=== PATIENT | female | born 1965 | race Caucasian/White ===

== ENCOUNTER 2024-10-30 15:56 | Outpatient (CLI) | payer OTHER, SELFPAY ==
--- NOTE | ~2024-10-30 | MM_ITS ---
EXAMINATION: MM screening barak BI w belinda HISTORY: Screening TECHNIQUE: Craniocaudal and mediolateral oblique 3-D tomosynthesis images were obtained and synthetic 2-D images were generated. CAD analysis was submitted and interpreted. COMPARISON: No prior mammogram is available for comparison at this institution. BREAST PARENCHYMAL COMPOSITION: Dense: The breasts are heterogeneously dense, which may obscure small masses FINDINGS: There is focal asymmetry laterally in the right breast on CC view, posterior third. There i s asymmetry medially in the left breast on CC view. There are no suspicious calcifications or archite ctural distortion. IMPRESSION: 1. Bilateral breast asymmetries. 2. Additional mammographic views and possible breast ultrasound are recommended. BI-RADS Category 0: Incomplete: Needs additional imaging evaluation. Reviewed, dictated and finalized at location A. RONMENTAL MARKETING REPRESENTATIVE IMPRESSION: 1. Bilateral breast asymmetries. 2. Additional mammographic views and possible breast ultrasound are recommended . BI-RADS Category 0: Incomplete: Needs additional imaging evaluation.
== END 2024-10-30 15:57 | disposition home or self-care (01) ==
DX: Z12.31 Encounter for screening mammogram for malignant neoplasm of breast (principal); R92.8 Other abnormal and inconclusive findings on diagnostic imaging of breast
CPT/HCPCS: 77063; 77067

== ENCOUNTER 2024-11-26 07:54 | Outpatient (CLI) | payer OTHER, SELFPAY ==
--- NOTE | ~2024-11-26 | MMUS_ITS ---
EXAMINATION: US breast BI complete, MM diagnostic barak BI w belinda HISTORY: Follow-up breast asymmetries TECHNIQUE: Additional 3-D tomosynthesis images of the breasts were performed and synthetic 2-D images were generated. CAD analysis was submitted and interpreted. High resolution bilateral complete breas t ultrasound was performed. COMPARISON: Comparison to multiple prior studies sequentially, with oldest reviewed study dated 03/23. BREAST PARENCHYMAL COMPOSITION: Dense: The breasts are heterogeneously dense, which may obscure small masses FINDINGS: MAMMOGRAPHIC FINDINGS: There are no discrete masses, calcifications or architectural distortion in either breast to suggest malignancy. Breast asymmetries are stable ULTRASOUND: Complete US of all 4 quadrants of the breast/s and retroareolar region was reviewed. Normal heterogen eous echotexture without focal solid or cystic mass. IMPRESSION: 1. No evidence for malignancy in either breast. 2. Routine yearly screening mammogram and regular clinical breast examination are recommended. BI-RADS Category 1: Negative Reviewed, dictated and finalized at location [] KILN WORKER IMPRESSION: 1. No evidence for malignancy in either breast. 2. Routine yearly screening mammogram and regular clinical breast examination a re recommended. BI-RADS Category 1: Negative
== END 2024-11-26 07:55 | disposition home or self-care (01) ==
LOC: MICIMG 07:54
PROVIDERS: Visit Provider Nurse Practitioner
DX: R92.8 Other abnormal and inconclusive findings on diagnostic imaging of breast (principal)
CPT/HCPCS: 76641; 77062; 77066; G0279

== ENCOUNTER 2025-02-04 15:45 | Outpatient (CLI) | payer OTHER, SELFPAY ==
--- NOTE | ~2025-02-04 | MR_ITS ---
EXAMINATION: MR brain IAC wo/w con DATE: 02/04/2025 16:41 INDICATION: Bilateral sensorineural hearing loss TECHNIQUE: Magnetic resonance imaging (MRI) of the brain and brainstem was performed without and with 13 mL Multihance intravenous contrast. Sequences included sagittal and axial T1-weighted FSE, axial diffusion-weighted FS EPI, axial T2*-weighted GRE, axial T2-weighted FLAIR Propeller, axial T2-weight ed Propeller, small lnefv-ek-tsvx coronal FIESTA, small eempp-yq-yhbc coronal T1-weighted FSE, and sm all mrflu-lu-ukpy axial T1-weighted SPGR. Postcontrast sequences included axial T1-weighted FSE, smal l ndghw-kk-cuwp coronal T1-weighted FSE, and small lrsmq-xf-atlj axial T1-weighted SPGR. Apparent dif fusion coefficient (ADC) maps were created. COMPARISON: None. FINDINGS: There are no areas of restricted diffusion to suggest acute infarction. No intracranial hemorrhage or abnormal intracranial mass lesion. There are no intraparenchymal signal abnormalities seen on the ot her pulse sequences. The ventricles are symmetric and normal in size. Normal seventh/eighth cranial n erve complexes. No cerebellopontine angles masses. No evidence of mastoid or middle ear fluid. There are no abnormal extra-axial fluid collections. Flow voids are seen in the cerebral arteries on the T2 -weighted sequences consistent with their expected patency. Mild mucoperiosteal thickening the bilate ral ethmoid sinuses. There is mucus in the dependent aspect of the left sphenoid sinus. Changes of bi lateral intraocular lens replacement. Visualized orbits and soft tissues are unremarkable. There are no areas of abnormal enhancement on the post contrast images. IMPRESSION: 1. Normal brain and normal MR of the internal auditory canals with no etiology identified for reporte d bilateral sensorineural hearing loss. Reviewed, dictated and finalized at location B. IMPRESSION: 1. Normal brain and normal MR of the internal auditory canals with no etiology identified for reported bilateral sensorineural hearing loss.
== END 2025-02-04 15:46 | disposition home or self-care (01) ==
LOC: MICIMG 15:45
PROVIDERS: PCP Family Medicine; Visit Provider Otolaryngology
DX: H90.3 Sensorineural hearing loss, bilateral (principal)
CPT/HCPCS: 70553; A9577

== ENCOUNTER 2025-03-20 11:44 | Emergency (ER) | payer OTHER, SELFPAY ==
--- NOTE | 2025-03-20 11:44 | ED_ITS ---
HPI - Back Pain/Injury General Chief Complaint: Back Pain/Injury Stated Complaint: Back Pain Time Seen by Provider: 03/20/25 11:44 Source: patient Mode of arrival: ambulatory Limitations: no limitations History of Present Illness HPI Narrative: Karishma is a 59 year female patient presenting to the clinic today with complaints of right-sided low back pain that started yesterday. She reports she was lifting up some moderate size sticks up out of the yd yesterday prior to her symptoms. Denies any fall or injury. No saddle anesthesia or loss of bowel or bladder. History of sciatica and scoliosis in the past. Denies any urinary symptoms. Has taken 600 mg of Motrin today for her pain. Rates her pain currently an 8/10 with movement. Denies any difficulty walking. Related Data Allergies Allergy/AdvReac Type Severity Reaction Status Date / Time Penicillins Allergy Mild Swelling Verified 03/20/25 11:51 of Lip/Tongue/Throat Review of Systems Review of Systems: Pertinent positives per HPI. Patient denies any fever, chills, rash, headache, visual changes, dizziness, cough, runny nose, sore throat, shortness of breath, chest pain, palpitations, nausea, vomiting, diarrhea, constipation, abdominal pain, or any urinary issues. PMFSH Comments At the time of my signature, I reviewed and agree with the nursing past medical, surgical, social, and family history. There is no relevant family history pertinent to the patient complaint. Exam Narrative: General: Well-developed, well nourished, in no apparent distress Head: Normocephalic, atraumatic. Cardio: Regular rate and rhythm, s1 and s2 normal, no murmur appreciated. Resp: Clear to auscultation bilaterally, no rhonchi, rales, wheezing or rubs. Musculoskeletal: No deformity,tender to palpation over the right posterior hip with radiation of pain to the hip to of mid femur, grossly normal range of motion, muscle strength strong and equal in BLE. SLT negative, patellar reflexes 2/4 bilaterally, negative foot drop, normal gait and station Course Course Emergency Course: Portions of this record may have been created with voice recognition software. Level of Care: Express Care Visit Vital Signs Vital signs: Vital signs reviewed MDM - Back Pain/Injury MDM Narrative Medical decision making narrative: At the time of visit patient is resting comfortably on the exam table. Patient appears to be nontoxic. Plan: I suspect patient has acute low back pain with right-sided sciatica. Prescription for Medrol Dosepak and Flexeril was sent to the pharmacy. Supportive measures were discussed with the patient and they voiced understanding discharge instructions and agrees to treatment plan. Return precautions reviewed Differential Diagnosis Differential diagnosis: Likely lumbar radiculopathy, sciatica, strain of lumbar region, renal colic, pyelonephritis and thoracic back pain Discharge Plan Discharge Clinical Impression: Low back pain Qualifiers: Chronicity: acute Back pain laterality: right Sciatica presence: with sciatica Sciatica laterality: sciatica of right side Qualified Code(s): M54.41 - Lumbago with sciatica, right side Patient Disposition: Home Condition: Stable Instructions: Antibiotic Form, Sciatica (ED), Acute Low Back Pain (ED), Lower Back Exercises (ED) Additional Instructions: Take any prescription medication only as prescribed-Medrol Dosepak and cyclobenzaprine Be mindful of sedation precautions given to you if taking a muscle relaxer. May use heat or ice to the affected area Consider massage or chiropractor adjustment if this was discussed with provider May use blue emu, lidocaine patches, or asper cream to affected area- do not apply heat or ice directly over cream- can cause burn. Complete appropriate back/sciatica stretching exercises. Follow up with your PCP in 3-5 days if symptom persist. Patient Language: Congolese Prescriptions: New methylprednisolone [Medrol (Michelet)] 4 mg tablets,dose pack See Rx Instructions PO .COMPLEX Qty: 21 0RF Rx Instructions: orally per package directions cyclobenzaprine 10 mg tablet 10 mg PO Q8H PRN (Reason: muscle spasm) 7 Days Qty: 21 0RF Follow-up/Referrals: Mehdi,Oracio Miller MD [Primary Care Provider] - Time of Disposition: 11:59 Quality NIHSS Nursing Documentation ED NIHSS nursing documentation: reviewed/agree
[2025-03-20 11:53] VITALS: BP 139/71; PULSE 76; RESP 17; TEMP 36.7; O2SAT 100
--- OUTSIDE RECORDS SUMMARY | 2025-03-20 13:57 | XMS_ITS | Data Portability ---
Author Organization [facility] for [facility]'s [facility][note 3], [id number] [facility] Address [address] [place] [address] Assessment No assessment recorded. Plan of Treatment Reminders Order Date Submit Date Provider Last Modified By Organization Details Last Modified Time Details Appointments ANNUAL- EST 15 2025 03:15P M LEFTY GONZALES WHNP Not available Not available Not available Lab None recorde d. Referral None recorde d. Procedures None recorde d. Surgeries None recorde d. Imaging MAMMO, screeni ng, digital , bilater al [facility]24 [facility] [address] [address], [place], [address], 12/14/2024 14:58:41 Medication Orders None recorde d. Patient TargetsNo targets recorded. Patient InstructionsNo instructions recorded. Reason for Referral None Reported. Problems Name Problem SNOMED Code Status Onset Date Resolution Date Notes Provider Name and Address Organization Details Recorded Time Mitral valve prolapse 034353037 Active 2024 Rose Marshall null, [facility] 5 16:50:24 Acid reflux 995116765 Active 2024 Rose Marsahll null, [facility] for [facility][note 3] 5 16:50:46 Osteoporo sis 55223679 Active 2024 Rose Marshall null, [facility] for [facility][note 3] 5 16:50:55 Genitouri nary syndrome of menopause 91452499868 395946 Active 2024 LEFTY Montes [facility] [address], [place], [address] , [facility] for [facility] 17:08:06 Mitral valve disorder 96782851 Active Mitral valve prolapse, Problem Code: 424.0; Problem Code Type: ICD-9; Not Available [facility] 12:37:52 Gastroeso phageal reflux disease 931593005 Active Acid Reflux/GE RD, Problem Code: 530.81; Problem Code Type: ICD-9; Not Available [facility] 12:37:52 History of abnormal cervical Papanicol aou smear 750989214 Active Abnormal Pap Smear, hx colpo Startdate : '05-04-07 [facility]'; Problem Code Descripti on: 'Abnormal Pap Smear'; Not Available [facility] 12:37:52 Problem Notes None recorded. Procedures Surgical History Date Name Laterality Status Provider Name and Address Organization Details Recorded Time 11/26/19 25 Date of Last Mammogram completed [facility] for [facility] 11/28/2024 16:40:52 07/23/20 22 Date of Last Pap Smear completed [facility] 11/28/2024 16:41:08 10/10/19 18 Date of Last Colonoscopy completed [facility] 11/28/2024 16:42:04 Colonoscopy completed [facility] for [facility] 11/28/2024 16:40:32 extraction of cataract completed [facility] for [facility] 11/28/2024 16:51:42 [facility] 11/28/2024 16:51:51 cataract surgery completed Not Available [facility] 02/07/2025 14:57:08 colposcopy completed [facility] 02/07/2025 14:57:09 colonoscopy completed Not Available [facility] 02/07/2025 14:57:09 Imaging Results None recorded. Procedure Notes None recorded. Medical Equipment None Reported. Allergies Allergen ID Allergen Name Allergen Category Reaction Reaction Severity Criticality Documentation Date Start Date Code Code System Note Provider Name and Address Organization Details Recorded Time 371424 Product containin g penicilli n (product) medicatio n Not available Not available Not available 11/28/2024 17647 8001 SNOMED Rose Marshall [facility] 5 16:40:16 237241 latex environme nt,medica tion Not available Not available Not available 02/07/2025 19627 91 RxNorm Aller gyRea ction : 'itch y skin' ; Not Available [facility] 12:50:25 485079 scallop allergeni c extract food vomiting Not available Not available 02/07/2025 07143 6 RxNorm NOTE: Not Available [facility] 12:50:26 Medications Name Sig Start Date Stop Date Status Note LastModified by Organization Details LastModified Time prednisone 20 mg tablet 11/28 completed Not Available Not Available Not Available montelukast 10 mg tablet active Not Available Not Available Not Available fluticasone propionate 50 mcg/actuatio n nasal spray,suspen stanley SHAKE LIQUID AND USE 1 TO 2 SPRAYS IN EACH NOSTRIL DAILY active Not Available Not Available No t Available Vitals Date Recorded Body height Body mass index (BMI) Body weight Systolic blood pressure Diastolic blood pressure Provider Name and Address Organization Details Last Updated DateTime 11/28/2024 163.83 cm 24.3 kg/m2 02129.3 g 118 mm[Hg] 60 mm[Hg] Rose Marshall [facility] for [facility] 5 16:46:10 Social History Question Answer Notes LastModified by Organizat ion Details LastModified Time Tobacco Smoking Status Never Smoker [facility] 11/28/2024 16:40:27 Do You Have An Advance Directive? Yes [email or web address] Information not available 11/28/2024 If You Are , What Was Your Level Of Alcohol Consumption Prior To ? None [email or web address] Information not available 11/28/2024 How Many Years Have You Consumed Alcohol? 38 [email or web address] Information not available 11/28/2024 What Is Your Level Of Caffeine Consumption? Moderate [email or web address] Information not available 11/28/2024 What Type Of Diet Are You Following? REGULAR [email or web address] Information not available 11/28/2024 What Is Your Relationship Status? Information not available 11/28/2024 Sex: Unknown Functional Status Question Answer Note LastModified by Organizat ion Details LastModified Time How many times per week do you consume alcohol? 3-4 times per week [email or web address] Information not available 11/28/2024 Do you use any illicit or recreational drugs? No [email or web address] Information not available 11/28/2024 What is your level of alcohol consumption? Occasional [email or web address] Information not available 11/28/2024 Are you currently employed? Yes [email or web address] Information not available 11/28/2024 What is your occupation? teacher [email or web address] Information not available 11/28/2024 Mental Status None recorded. Family History Relationship Description Onset Age of this Age Resolved Age Notes LastModified by Organization Details LastModified Time Father Hypercholest erolemia [email or web address] Not available 2024 16:49:11 Mother Polyp of colon [email or web address] Not available 2024 16:49:29 Mother Non-Hodgkin' s lymphoma (clinical) [email or web address] Not available 11/28 16:49:39 Father Mixed hypercholest erolemia and hypertriglyc eridemia Elevat ed Choles terol/ Trigly ceride s - Phrees de 2016 Not available 02/07/2025 14:28:55 Mother History taken NOS Other precan cerous polyps - most of colon remove d Not available 02/07/2025 14:28:56 Mother Malignant neoplastic disease Cancer mgm-bl adder mgf-tera ng mother -nonho dgkin lympho ma Not available 02/07/2025 14:28:56 Mother Malignant tumor of colon Colon Cancer - Phrees ia 2016 Not available 02/07/2025 14:28:56 Maternal Grandfather Malignant neoplastic disease Cancer mgm-bl adder mgf-tera ng mother -nonho dgkin lympho ma Not available 02/07/2025 14:28:56 Maternal Grandmother Malignant neoplastic disease Cancer mgm-bl adder mgf-tera ng mother -nonho dgkin lympho afsaneh Not available 02/07/2025 14:28:56 Maternal Grandmother Osteoporosis Osteop orosis Not available 02/07/2025 14:28:56 Paternal Grandfather Mitral valve prolapse Mitral valve prolap se Not available 02/07/2025 14:28:56 Medical History Condition Response Cancer- Genetic screening Eyes-other Y ENT-Other Y Cardiology-Other Y Ortho-Other ID-Other Y GI- Reflux/Ulcers Y Gynecological History Statement/Question Response History of Fibroids N Flow Light Date of Last Mammogram 11/26/2024 Date of LMP 05/29/2022 Current Control Method: Menopause History of Recurrent Ovarian Cysts N Age at first intercourse 18 HPV Vaccine Not Completed Post Menopausal Hormone Therapy User Nev er Date of Last Colonoscopy 10/10/2017 Date of Last HPV Test 07/23/2022 Date of Last Cholesterol Screening 11/26 History of PCOS N History of Infertility N History of Cervical Dysplasia N History of Vulvar Dysplasia N Duration of Flow (days) 0 History of HPV Y Current Control Method Age at Menarche 15 History of Endometriosis N Frequency of Cycle (Q days) 0 Sexually Active? Y History of Abnormal PAP Y History of Dysmenorrhea N Menses Monthly N Date of Last Pap Smear 07/23/2022 Sexual Problems? N History of Sexually Transmitted Infectio n N Date of Last Bone Density 2019 Obstetrics History GPAL:G 2 P 2 0 0 2 Type Value Full Term 2 Living 2 Total 2 Past Encounters Encounter ID Performer Location Encounter Start Date Encounter Closed Date Diagnosis/Indication Diagnosis SNOMED-CT Code Diagnosis ICD10 Code Diagnosis Note [id number] LEFTY FELICIANO [id number] [facility] [address] [facility] [place] [address] 11/28/2024 16:32:11 11/28/2024 17:06:05 Screening for malignant neoplasm of breast 150918306 Z12.39 -discussed mammogram results with pt from 11/26/24 Gynecologi c examination 11204071 Z01.419 Genitourin osiel syndrome of menopause 2580924276 2286234 N95.8 -does not want tx at this time-brief ly discussed revaree and Health Concerns Section Related Observation LastModified by Organization Detai ls LastModified Time None Recorded Concern Status LastModified by Organization Details LastModified Time None Recorded Advance Directives Directive Y: Payers Insurance Date Sequence Insurance Name Policy Number Policy Jiang Covered Member ID Jiang Member ID Guarantor Name 11/28/2024 [facility] [id number] Karishma Lala [id number] Karishma Lala Notes Date Note Type Note Provider Name and Address Organization Details Recorded Time 11/28/2024 text/html [facility] Annual Well-Women Visit Age 40-64Reported bypatient.Current Medical History:reviewed and documented Relevant Family History:no family history of breast cancer Last Pap smear:reviewed and documented in [employer] history Mammography:up-to -date Sexually Active:Yes: same partner STI Screen: Menopausal Symptoms:night sweats(mild-impro ving) LEFTY GONZALES [facility] [address], [place], [address], [facility] 11/28/2024 17:09:54 OBGyn Episode No OBEpisode recorded.
== END 2025-03-20 12:03 | disposition home or self-care (01) ==
PROVIDERS: Emergency Provider Nurse Practitioner Family; PCP Family Medicine
DX: M54.41 Lumbago with sciatica, right side (principal); M41.9 Scoliosis, unspecified
CPT/HCPCS: 99203; G0463

== ENCOUNTER 2025-09-02 15:37 | Outpatient (CLI) | payer OTHER, SELFPAY ==
--- NOTE | ~2025-09-02 | MR_ITS ---
EXAMINATION: MRI lumbar spine without contrast: DATE: 09/02/2025. INDICATION: Low back pain from March 2025. TECHNIQUE: Axial, coronal and sagittal images as per protocol. were obtained. COMPARISON: None. FINDINGS: No acute bony lesions lumbar vertebrae. Conus terminates at L1-2 level. At L1-2 disc no focal disc lesions are seen. At L2-3 level, degenerative disc disease with bulging annulus and facet arthropathy are causing mild compromise of both lateral recess and minimal compromise of thecal sac in the midline measuring 11.6 mm. At L3-4 level, degenerative disc disease and facet arthropathy are causing mild compromise of both lateral recess and neural foramen. At L4-5 level, significant bilateral facet arthropathy and bulging annulus due to degenerative disc changes are noted. Moderate compromise of both lateral recesses and neural foramina are noted. Mild compromise of thecal sac with the AP diameter in the midline measuring 1.7 mm. At L5-S1 level, degenerative disc disease with bulging annulus is noted along with right paracentral disc protrusion impinging on the thecal sac at the right of the midline and impinging on the right S1 nerve root. Paravertebral soft tissues are unremarkable. IMPRESSION: 1. No acute bony lesions of the lumbar vertebrae. 2.At L5-S1 level, degenerative disc disease with bulging annulus is noted along with right paracentral disc protrusion impinging on the thecal sac at the right of the midline and impinging on the right S1 nerve root. 3. Findings at other disc levels are described above in detail at each level Reviewed, dictated and finalized at location T. CARE WORKER IMPRESSION: 1. No acute bony lesions of the lumbar vertebrae. 2.At L5-S1 level, degenerative disc disease with bulging annulus is noted along with right paracentral disc protrusion impinging on the thecal sac at the righ t of the midline and impinging on the right S1 nerve root. 3. Findings at other disc levels are described above in detail at each level
== END 2025-09-02 15:38 | disposition home or self-care (01) ==
LOC: MICIMG 15:38
PROVIDERS: PCP Family Medicine; Visit Provider Family Medicine
DX: M51.379 Other intervertebral disc degeneration, lumbosacral region without mention of lumbar back pain or lower extremity pain (principal)
CPT/HCPCS: 72148